=== PATIENT | male | born 1990 | race Two or more races ===

== ENCOUNTER 2021-12-13 16:30 | Emergency (ER) | payer BC, OTHER ==
[~2021-12-13] VITALS: Ht 175.3 cm; Wt 70.3 kg
[2021-12-13 17:27] LABS: Amphetamine Screen, Urine NEGATIVE (NEGATIVE); Barbiturate Scree,Urine NEGATIVE (NEGATIVE); Benzodiazephine Screen, Urine NEGATIVE (NEGATIVE); Cannabinoid Screen, Urine POSITIVE (NEGATIVE); Cocaine Screen, Urine NEGATIVE (NEGATIVE); Opiate Scree,Urine NEGATIVE (NEGATIVE); Phencyclidine Screen, Urine NEGATIVE (NEGATIVE)
[2021-12-13 18:05] LABS: Basophils # (auto) 0.1 10 ^3/uL (0-0.2); Basophils % (auto) 1.1 % (0.0-2.0); Eosinophils # (auto) 0 10 ^3/uL (0-0.8); Eosinophils % (auto) 0.7 % (0.0-7.0); Hemoglobin 15.3 g/dL (13.5-17.5); Lymphocytes # (auto) 1.9 10 ^3/uL (0.4-5.4); Lymphocytes % (auto) 32.5 % (10.0-50.0); Mean Corpuscular Hemoglobin 31.1 pg (28.0-32.0); Mean Corpuscular Hgb Conc. 35.4 g/dL (32.0-36.0); Mean Corpuscular Volume 87.6 fL (80.0-100.0); Monocytes # (auto) 0.7 10 ^3/uL (0-1.3); Monocytes % (auto) 11.2 % (0.0-12.0); Neutrophils # (auto) 3.3 10 ^3/uL (1.6-8.6); Neutrophils % (auto) 54.5 % (37.0-80.0); Nucleated Red Blood Cells % 0.1 %; Red Blood Cells 4.91 10^6/uL (4.5-5.90); Red Cell Distribution Width 13.2 % (11.8-14.3)
[2021-12-13 18:20] LABS: BUN/Creatinine Ratio 20.2; Potassium 3.8 mmol/L (3.5-5.1)
[2021-12-13 18:36] LABS: Salicylate < 1.7 mg/dL (2.8-20.0)
[2021-12-13 18:37] LABS: Acetaminophen < 2.0 ug/mL (10-30)
[2021-12-14 01:00] VITALS: BP 133/91
== END 2021-12-14 01:35 | disposition home or self-care (01) ==
LOC: ER 16:30
DX: R45.851 Suicidal ideations (principal); F12.10 Cannabis abuse, uncomplicated
CPT/HCPCS: 36415; 80048; 80307; 80320; 80329; 85025